=== PATIENT | female | born 1990 | race Caucasian/White ===

== ENCOUNTER → 2017-05-23 | Outpatient (CLI) | payer BC ==
[~2017-05-23] MED LIST: PNV91TAB3 PO
== END ==
LOC: CANPRECLI → LABNPT 16:34
PROVIDERS: ATTEND Obstetrics & Gynecology
DX: Z53.29 Procedure and treatment not carried out because of patient's decision for other reasons (principal)
CPT/HCPCS: 84702

== ENCOUNTER → 2017-10-17 | Outpatient (CLI) | payer BC ==
--- NOTE | 2017-10-17 08:08 | Diagnostic Imaging Report ---
PROCEDURE: US Gallbladder. TECHNIQUE: Multiple real-time grayscale images were obtained over the right upper quadrant in various projections. INDICATION: Right upper quadrant pain. FINDINGS: The liver is normal in size without focal lesions. There is no intrahepatic biliary ductal dilatation. The common bile duct is obscured by bowel gas as is the pancreas. There is no cholelithiasis, gallbladder wall thickening or pericholecystic fluid. Right kidney is grossly unremarkable. There is no ascites. There is no right upper quadrant discomfort during the exam. The aorta and IVC are not well-seen. IMPRESSION: Limited exam due to bowel gas which inhibits the visualization of common bile duct and pancreas. Otherwise unremarkable right upper quadrant ultrasound. Dictated by: Dictated on workstation # [id number]
== END ==
LOC: RAD 06:52
PROVIDERS: ATTEND Obstetrics & Gynecology
DX: R10.11 Right upper quadrant pain (principal)
CPT/HCPCS: 76705

== ENCOUNTER 2018-02-16 07:00 | Inpatient (IN) | payer BC ==
[~2018-02-16] VITALS: Ht 167.6 cm; Wt 92.5 kg
[2018-02-16] VITALS (48 sets, daily range): BP systolic 101–145; BP diastolic 60–91
[2018-02-16] MEDS ORDERED: OXYTOCIN/NORMAL SALINE 500 ML IV SCH ×2 (07:23→16:56)
[2018-02-16] MEDS ORDERED: D5 LR IV SOLUTION 1,000 ML IV ONE (07:23)
--- OUTSIDE RECORDS SUMMARY | 2018-02-16 07:25 | XMS REPORT | Continuity of Care Document ---
Author Author [facility] Organization [facility] Address Unknown Phone Unavailable Allergies There is no data. Medications There is no data. Problems Date Dx Coded Attending Type Code Diagnosis Diagnosed By 05/19/2016 JUAN LUIS DURHAM MD, Ot O47.9 FALSE LABOR, UNSPECIFIED 05/19/2016 JUAN LUIS DURHAM MD Ot Z3A.00 WEEKS OF GESTATION OF NOT SPEC 05/24/2016 JUAN LUIS DURHAM MD, Ot O47.9 FALSE LABOR, UNSPECIFIED 05/24/2016 JUAN LUIS DURHAM MD, Ot Z3A.00 WEEKS OF GESTATION OF NOT SPEC 11/01/2017 JUAN LUIS DURHAM MD Ot R10.11 RIGHT UPPER QUADRANT PAIN Procedures There is no data. Results Test Result Range Complete urinalysis with reflex to culture - 05/19/16 16:10 Urine color determination YELLOW NRG Urine clarity determination CLEAR NRG Urine pH measurement by test strip 7 5-9 Specific gravity of urine by test strip 1.010 1.016- 1.022 Urine protein assay by test strip, semi-quantitative NEGATIVE NEGATIVE Urine glucose detection by automated test strip NEGATIVE NEGATIVE Erythrocytes detection in urine sediment by light microscopy NEGATIVE NEGATIVE Urine ketones detection by automated test strip NEGATIVE NEGATIVE Urine nitrite detection by test strip NEGATIVE NEGATIVE Urine total bilirubin detection by test strip NEGATIVE NEGATIVE Urine urobilinogen measurement by automated test strip (mass/volume) NORMAL NORMAL Urine leukocyte esterase detection by dipstick NEGATIVE NEGATIVE Automated urine sediment erythrocyte count by microscopy (number/high power field) NONE NRG Automated urine sediment leukocyte count by microscopy (number/high power field ) [HPF] NRG Bacteria detection in urine sediment by light microscopy TRACE NRG Squamous epithelial cells detection in urine sediment by light microscopy 10-25 NRG Crystals detection in urine sediment by light microscopy NONE NRG Casts detection in urine sediment by light microscopy NONE NRG Mucus detection in urine sediment by light microscopy NEGATIVE NRG Complete urinalysis with reflex to culture NO NRG Bacterial urine culture - 05/19/16 16:10 URINE CULTURE RESULTS 10,000/ML - 100,000/ML NRG Serum or plasma choriogonadotropin measurement (units/volume) - 05/23/17 15:00 Serum or plasma choriogonadotropin measurement (units/volume) < m[iU ]/mL <5 Encounters ACCT No. Visit Date/Time Discharge Status Pt. Type Provider Facility Loc./Unit Complaint [id number] 10/17/2017 06:52:00 10/17/2017 23:59:59 CLS Outpatient JUAN LUIS DURHAM MD [facility] RAD RUQ PAIN [id number] 05/30/2017 16:34:00 05/30/2017 16:34:00 CAN JUAN LUIS Edwards MD [facility] LABT [id number] 05/19/2016 16:02:00 05/19/2016 16:50:00 DIS Outpatient JUAN LUIS DURHAM MD [facility] WSo BACK PAIN [id number] 05/18/2013 12:52:00 05/18/2013 23:59:59 CLS Outpatient [id number] 02/16/2018 07:00:00 PEN JUAN LUIS Edwards MD INDUCTION
--- OUTSIDE RECORDS SUMMARY | 2018-02-16 07:25 | XMS REPORT ---
Author Author FELICIA DURON Organization [facility] Address [address] [place] [address] Care Team Providers Care Mobile Application Developer Name Role Phone FELICIA DURON Unavailable PROBLEMS Unknown Problems ALLERGIES No Information ENCOUNTERS Encounter Location Date Diagnosis [facility] [address] [facility] [id number] [id number] May, Encounter for immunization Z23 [facility] [address] [facility] [id number] [id number] January, Sinusitis 473.9 IMMUNIZATIONS Vaccine Route Administration Date Status FLUARIX QUAD (3 AND UP) 2017 IM Intramuscular Jun 16, 2017 Administered SOCIAL HISTORY Never Assessed REASON FOR VISIT Flu shot [place] FELIZ PLAN OF CARE VITAL SIGNS MEDICATIONS Unknown Medications RESULTS No Results PROCEDURES Procedure Date Ordered Result Body Site FLUARIX QUAD (3 & UP)-GSK-2014Jun 16, 2017 SINGLE IMMUNIZATION ADMIN Jun 16, 2017 INSTRUCTIONS MEDICATIONS ADMINISTERED No Known Medications
--- NOTE | 2018-02-16 07:32 | History & Physical ---
History and Physical Date Seen by Provider: Feb 16, 2018 Time Seen by Provider: 07:29 This patient is a 26-year-old LC 1 white female with a due date of admitted now for induction of labor. This was the product of IUI with donor sperm. This patient is a poor history with her previous complicated by polycystic kidney disease which resulted in a . Patient has had no problems with his to date her GBS culture is negative. Patient denies rupture membranes or bleeding. Allergies are to sulfa Medications are vitamins Medical social and surgical histories are per the antepartum record HEENT exam is normal Neck is supple no lymphadenopathy no thyromegaly Abdomen is gravid soft nontender nondistended Extremities show no clubbing or cyanosis. There is no Homans sign. Pelvic exam is pending Assessment and plan term at 37-6/7 weeks gestation admitted for induction of labor. Anticipation is for vaginal delivery. Poor history/IUI conception Allergies and Home Medications Allergies Uncoded Allergies: Sulfa drugs (Allergy, Intermediate, throat swelling, 02/16/18) Home Medications Pnv95/Ferrous Fumarate/FA 1 Each Tablet, 1 EACH PO DAILY, (Reported) Patient Home Medication List Home Medication List Reviewed: Yes JUAN LUIS DURHAM MD Feb 16, 2018 7:32 am
[2018-02-16 07:48] LABS: BASOPHILS % (AUTO) 0 % (0-10); EOSINOPHILS # (AUTO) 0.1 10^3/uL (0.0-0.3); EOSINOPHILS % (AUTO) 1 % (0-10); HEMATOCRIT 33 % (35-52); HEMOGLOBIN 11.3 G/DL (11.5-16.0); LYMPHOCYTES # (AUTO) 1.7 X 10^3 (1.0-4.0); LYMPHOCYTES % (AUTO) 22 % (12-44); MEAN CORPUSCULAR HEMOGLOBIN 30 PG (25-34); MEAN CORPUSCULAR HGB CONC 34 G/DL (32-36); MEAN CORPUSCULAR VOLUME 87 FL (80-99); MEAN PLATELET VOLUME 10.6 FL (7.4-10.4); MONOCYTES # (AUTO) 0.7 X 10^3 (0.0-1.0); MONOCYTES % (AUTO) 9 % (0-12); NEUTROPHILS # (AUTO) 5.2 X 10^3 (1.8-7.8); NEUTROPHILS % (AUTO) 67 % (42-75); PLATELET COUNT 149 10^3/uL (130-400); RED CELL DISTRIBUTION WIDTH 13.3 % (10.0-14.5); WHITE BLOOD COUNT 7.7 10^3/uL (4.3-11.0)
[2018-02-16] MEDS: D5 LR IV SOLUTION 1,000 ML IV SCH ×2 (07:54→13:54)
[2018-02-16] MEDS ORDERED: SUFENTA 0.6MCG/ML BUPIVA 0.125 100 ML ONE (11:59)
[2018-02-16] MEDS ORDERED: BUPIVACAINE 0.25% 30 ML (SENSORCAINE) VIAL ONE (12:42)
[2018-02-16] MEDS ORDERED: LIDOCAINE PF 2% 5 ML (XYLOCAINE) VIAL ONE (12:42)
[2018-02-16] MEDS ORDERED: fentaNYL INJECTION 100 MCG/2 ML AMP ONE (12:43)
[2018-02-16] MEDS ORDERED: LACTATED RINGERS 1,000 ML IV ONE (13:38)
[2018-02-16] MEDS ORDERED: ONDANSETRON 4 MG/2 ML (SDV) Z0FRAN IV PRN (13:45)
[2018-02-16] MEDS ORDERED: CATHETER FLUSH 10 ML SYR IV PRN (13:45)
[2018-02-16] MEDS ORDERED: NALOXONE 0.4 MG/ML 1 ML (NARCAN) VIAL IV PRN (13:45)
[2018-02-16] MEDS ORDERED: diphenhydrAMINE 50 MG/ML INJ (BENADRYL) IV PRN (13:45)
[2018-02-16] MEDS ORDERED: EPIDURAL (SUFENTA 0.6MCG/ML BUPIVA 0.125%) 100 ML BAG EPI SCH (13:45)
[2018-02-16] MEDS ORDERED: LIDOCAINE/EPI 2% 1:200,00 (XYLOCAINE) 10 ML VIAL ONE ×2 (13:53→16:01)
[2018-02-16] MEDS ORDERED: KETOROLAC 30 MG/ML VIAL IV SCH (17:00)
[2018-02-16] MEDS ORDERED: BENZOCAINE/MENTHOL (DERMOPLAST) 56 ML CAN TP PRN (17:00)
[2018-02-16] MEDS ORDERED: oxyCODONE/APAP 5/325MG (PERCOCET 5) TABLET PO PRN (17:00)
[2018-02-16] MEDS ORDERED: TETANUS,DIPTH,PERTUSS P/F (BOOSTRIX) 0.5 ML VIAL IM ONE (17:00)
--- NOTE | 2018-02-16 22:22 | Progress Note-Standard ---
Standard Progress Note Progress Notes/Assess & Plan Date Seen by Provider: Feb 16, 2018 Time Seen by Provider: 22:21 Progress/Assessment & Plan No C/O VSS AFB Vital Signs 02/16/18 02/16/18 02/16/18 16:14 17:29 17:59 Temp 97.9 Pulse 96 Resp 20 B/P (MAP) 126/80 (95) Pulse Ox 99 O2 Delivery Room Air FF < UMB NT Ext NO C/C/E and no homans A/P PPD <1 doing well. Routine care Final Diagnosis JUAN LUIS MCGINNIS MD Feb 16, 2018 10:22 pm
--- NOTE | 2018-02-16 22:24 | Discharge Instructions ---
Discharge Instructions Discharge Medications New, Converted or Re-Newed RX: RX on Chart Patient Instructions Patient Instructions: as directed Return to The Hospital For: as directed Activity & Diet Discharge Diet: No Restrictions Activity as Tolerated: No Orders-Post D/C & Referrals Follow Up Appt: Call to make follow up appt. for patient in 4 weeks. Activity Per routine post vaginal delivery instructions. Diet as tolerated Patient may shower or tub bathe as desired. JUAN LUIS DURHAM MD Feb 16, 2018 10:24 pm
[2018-02-16] MEDS ORDERED: OXYC-471 PO (22:25)
[2018-02-16] MEDS ORDERED: DOCU100C37 PO (22:25)
[2018-02-16] MEDS ORDERED: IBUP-1780 PO (22:25)
--- NOTE | 2018-02-17 01:26 | OPERATIVE REPORT ---
DATE OF SERVICE: 02/16/2018 DELIVERY NOTE The patient delivered by term spontaneous vaginal delivery a viable female infant with Apgars of 8 and 9 at 1 and 5 minutes of life respectively, weight of 8 pounds 6 ounces, time of 15:53. The was bulb suctioned on delivery of the head and double nuchal cord was easily released and the delivery completed. The infant was bulb suctioned again and when the cord was relatively pulseless, it was doubly clamped, father cut the cord and the baby was passed to mom's abdomen. Midline episiotomy had been performed with the baby and mom unable to expel the baby. The heart rate was dropping into the 90s or lower and the patient requested the episiotomy, which was performed and then the delivery was accomplished promptly. Cord bloods were obtained after the umbilical cord had been clamped and cut. The placenta delivered spontaneously Holt. It was normal with a 3-vessel cord. The cervix, vagina, rectum and perineum were examined and found intact, except for the midline episiotomy, which was repaired with a single suture of 3-0 Vicryl in the usual manner under the epidural augmented with local using 1% lidocaine with epinephrine. Sponge and needle counts were correct on completion of the delivery and the repair. The patient remained in the LDR for recovery. Estimated blood loss again was around 300 mL. The patient tolerated the delivery well and the baby remained in the delivery room with the mom. Job ID: [id number] DocumentID: [id number] Dictated Date: 02/16/2018 16:18:28 Procedures Nurse Date: 02/17/2018 01:26:21 Dictated By: JUAN LUIS DURHAM MD
[2018-02-17 01:30] VITALS: BP 116/68
[2018-02-17] MEDS ORDERED: IBUPROFEN 800 MG (MOTRIN) TAB PO ONE ×2 (01:35→09:24)
[2018-02-17] MEDS: IBUPROFEN 800 MG (MOTRIN) TAB PO SCH ×4 (01:39→20:48)
[2018-02-17 09:00] VITALS: BP 97/65
[2018-02-17] MEDS ORDERED: TETANUS,DIPTH,PERTUSS P/F (BOOSTRIX) 0.5 ML VIAL IM ONE (09:30)
[2018-02-17] MEDS: DOCUSATE SODIUM 100 MG (COLACE) CAP PO SCH ×2 (09:34→20:48)
--- NOTE | 2018-02-17 10:12 | Anesthesia-Regional Post-Op ---
Regional Patient Condition Mental Status: Alert, Oriented x3 Circulation: Same as Pre-Op Headache: Absent Sensation: Full Recovery Motor Block: Absent Post Op Complications Complications None Follow Up Care/Instructions Patient Instructions None needed. Anesthesia/Patient Condition Patient is doing well, no complaints, stable vital signs, no apparent adverse anesthesia problems. No complications reported per nursing. LORENZO SANCHEZ CRNA Feb 17, 2018 10:12
[2018-02-17 13:15] VITALS: BP 101/63
[2018-02-17 16:30] VITALS: BP 111/73
--- NOTE | 2018-02-17 20:29 | Progress Note-Standard ---
Standard Progress Note Progress Notes/Assess & Plan Date Seen by Provider: Feb 17, 2018 Time Seen by Provider: 20:28 Progress/Assessment & Plan No C/O VSS AFB Vital Signs 02/16/18 02/16/18 02/16/18 16:14 17:29 17:59 Temp 97.9 Pulse 96 Resp 20 B/P (MAP) 126/80 (95) Pulse Ox 99 O2 Delivery Room Air FF < UMB NT Ext NO C/C/E and no homans A/P PPD <1 doing well. Routine care 02/17/18 No C/O VSS AFB Vital Signs Vital Signs Date Time Temp Pulse Resp B/P (MAP) Pulse Ox O2 Delivery O2 Flow Rate FiO2 02/17/18 16:30 98.2 80 18 111/73 (86) 98 Room Air 02/17/18 13:15 97.8 71 18 101/63 (76) 99 Room Air 02/17/18 09:00 97.9 88 18 97/65 (76) 99 Room Air 02/17/18 01:30 97.4 98 18 116/68 (84) Room Air I & O 02/17/18 07:00 Intake Total 2000 ml Balance 2000 ml 02/16/18 02/16/18 02/16/18 16:14 17:29 17:59 Temp 97.9 Pulse 96 Resp 20 B/P (MAP) 126/80 (95) Pulse Ox 99 O2 Delivery Room Air FF < UMB NT Ext NO C/C/E and no homans A/P PPD 1 doing well. Routine care with likely home tomorrow. JUAN LUIS DURHAM MD Feb 17, 2018 8:29 pm
[2018-02-17 22:30] VITALS: BP 103/71
[2018-02-18] MEDS: IBUPROFEN 800 MG (MOTRIN) TAB PO SCH ×2 (03:16→08:27)
[2018-02-18 03:17] VITALS: BP 108/63
--- NOTE | 2018-02-18 06:47 | Progress Note-Standard ---
Standard Progress Note Progress Notes/Assess & Plan Date Seen by Provider: Feb 18, 2018 Time Seen by Provider: 06:46 Progress/Assessment & Plan No C/O VSS AFB Vital Signs 02/16/18 02/16/18 02/16/18 16:14 17:29 17:59 Temp 97.9 Pulse 96 Resp 20 B/P (MAP) 126/80 (95) Pulse Ox 99 O2 Delivery Room Air FF < UMB NT Ext NO C/C/E and no homans A/P PPD <1 doing well. Routine care 02/17/18 No C/O VSS AFB Vital Signs Vital Signs Date Time Temp Pulse Resp B/P (MAP) Pulse Ox O2 Delivery O2 Flow Rate FiO2 02/17/18 16:30 98.2 80 18 111/73 (86) 98 Room Air 02/17/18 13:15 97.8 71 18 101/63 (76) 99 Room Air 02/17/18 09:00 97.9 88 18 97/65 (76) 99 Room Air 02/17/18 01:30 97.4 98 18 116/68 (84) Room Air I & O 02/17/18 07:00 Intake Total 2000 ml Balance 2000 ml 02/16/18 02/16/18 02/16/18 16:14 17:29 17:59 Temp 97.9 Pulse 96 Resp 20 B/P (MAP) 126/80 (95) Pulse Ox 99 O2 Delivery Room Air FF < UMB NT Ext NO C/C/E and no homans A/P PPD 1 doing well. Routine care with likely home tomorrow. February 18, 2018 Patient is without complaint. She is ambulating, voiding, tolerating by mouth, has good pain control. Patient is requesting discharge home. She denies chest pain, denies shortness of breath, denies nausea vomiting, and denies headache. Vital Signs Date Time Temp Pulse Resp B/P (MAP) Pulse Ox O2 Delivery O2 Flow Rate FiO2 02/18/18 03:17 97.7 60 18 108/63 (78) 98 Room Air 02/17/18 22:30 98.1 81 18 103/71 (82) 98 Room Air 02/17/18 16:30 98.2 80 18 111/73 (86) 98 Room Air 02/17/18 13:15 97.8 71 18 101/63 (76) 99 Room Air 02/17/18 09:00 97.9 88 18 97/65 (76) 99 Room Air Vital signs are stable. Patient is afebrile. Fundus is firm below the umbilicus and nontender. [place] show clubbing cyanosis. There is no Homans sign. There is minimal pretibial pitting edema. Assessment and plan day number 2 status post term spontaneous vaginal delivery doing well. Plan is for discharge home with follow-up in clinic Final Diagnosis T JUAN LUIS LONGORIA MD Feb 18, 2018 6:47 am
[2018-02-18 08:00] VITALS: BP 102/66
[2018-02-18] MEDS: DOCUSATE SODIUM 100 MG (COLACE) CAP PO SCH (08:26)
[2018-02-18 10:35] VITALS: BP 102/66
== END 2018-02-18 10:35 | disposition home or self-care (01) | DRG 775 ==
LOC: LDRP 07:20
PROVIDERS: ADMIT Obstetrics & Gynecology; ATTEND Obstetrics & Gynecology
PROC: 10E0XZZ Delivery of Products of Conception, External Approach (ICD-10-PCS; principal; 2018-02-16)
PROC: 0W8NXZZ Division of Female Perineum, External Approach (ICD-10-PCS; 2018-02-16)
PROC: 3E033VJ Introduction of Other Hormone into Peripheral Vein, Percutaneous Approach (ICD-10-PCS; 2018-02-16)
DX: O80 Encounter for full-term uncomplicated delivery (principal); Z37.0 Single live birth; Z3A.37 37 weeks gestation of pregnancy; Z23 Encounter for immunization
CPT/HCPCS: 36415; 85025; 86850; 86900; 86901; 88307; 90715

== ENCOUNTER → 2022-09-30 | Outpatient (CLI) | payer BC ==
[~2022-09-30] MED LIST changes: +DOCU100C37 PO; +IBUP-1780 PO; +OXYC1TAB11 PO
--- NOTE | 2022-10-03 10:07 | Diagnostic Imaging Report ---
INDICATION: Twin , evaluate growth. TECHNIQUE: Multiple Real-time grayscale images were obtained over the gravid uterus. COMPARISON: None. FINDINGS: There is a twin live intrauterine which demonstrates a dividing membrane. Baby A is in a cephalic presentation to the maternal right. Baby A placenta appears to be fundal and anterior with an amniotic fluid index of 18.1 cm. heart rate was recorded at 147 BPM. Baby B is in a breech presentation to the maternal left with an anterior placenta and an amniotic fluid index of 18.1 cm. The heart rate was recorded at 149 BPM. Biophysical profile scores for both Baby A and Baby B are each 8 out of 8. Biometrical measurements are as follows: Biparietal 7.14 cm, age 28 weeks 5 days. Head circumference 26.23 cm, age 28 weeks 4 days. Abdominal circumference 24.44 cm, age 28 weeks 5 days. Femur length 5.09 cm, age 27 weeks 2 days. Sonographic estimate age: 28 weeks 3 days. Sonographic estimated date of delivery: 12/20/2022. Estimated Weight: 1190 gm (+/- 174 gm). LMP percentile: 69%. heart rate: 147 beats per minute. number: 1 of 2. IMPRESSION: Twin live intrauterine pregnancies at approximately 28 weeks 3 days gestation. Estimated date of confinement sonographically is 12/20/2022. Biophysical profile scores for both Baby A and Baby B are normal at 8 out of 8. Dictated by: Dictated on workstation # [id number]
--- NOTE | 2022-10-04 17:42 | Diagnostic Imaging Report ---
INDICATION: Twin , evaluate growth. TECHNIQUE: Multiple Real-time grayscale images were obtained over the gravid uterus. COMPARISON: None. FINDINGS: There is a twin live intrauterine which demonstrates a dividing membrane. Baby A is in a cephalic presentation to the maternal right. Baby A placenta appears to be fundal and anterior with an amniotic fluid index of 18.1 cm. heart rate was recorded at 147 BPM. Baby B is in a breech presentation to the maternal left with an anterior placenta and an amniotic fluid index of 18.1 cm. The heart rate was recorded at 149 BPM. Biophysical profile scores for both Baby A and Baby B are each 8 out of 8. Biometrical measurements are as follows: Biparietal 7.14 cm, age 28 weeks 5 days. Head circumference 26.23 cm, age 28 weeks 4 days. Abdominal circumference 24.44 cm, age 28 weeks 5 days. Femur length 5.09 cm, age 27 weeks 2 days. Sonographic estimate age: 28 weeks 3 days. Sonographic estimated date of delivery: 12/20/2022. Estimated Weight: 1190 gm (+/- 174 gm). LMP percentile: 69%. heart rate: 147 beats per minute. number: 1 of 2. Biometrical measurements are as follows: Biparietal 7.25 cm, age 29 weeks 1 days. Head circumference 26.68 cm, age 29 weeks 1 days. Abdominal circumference 24.14 cm, age 28 weeks 3 days. Femur length 4.96 cm, age 26 weeks 6 days. Sonographic estimate age: 28 weeks 3 days. Sonographic estimated date of delivery: 12/20/2022. Estimated Weight: 1152 gm (+/- 168 gm). LMP percentile: 59%. heart rate: 149 beats per minute. number: 2 of 2. IMPRESSION: Twin live intrauterine pregnancies at approximately 28 weeks 3 days gestation. Estimated date of confinement sonographically is 12/20/2022. Biophysical profile scores for both Baby A and Baby B are normal at 8 out of 8. Dictated by: Dictated on workstation # [id number]
== END ==
LOC: RAD 14:50
PROVIDERS: ATTEND Obstetrics & Gynecology
DX: O30.003 Twin pregnancy, unspecified number of placenta and unspecified number of amniotic sacs, third trimester (principal); Z3A.28 28 weeks gestation of pregnancy
CPT/HCPCS: 76805; 76810; 76819

== ENCOUNTER 2022-11-27 03:31 | Outpatient (CLI) | payer BC ==
[2022-11-27] VITALS (12 sets, daily range): BP systolic 127–168; BP diastolic 89–110
[~2022-11-27] VITALS: Ht 167.7 cm; Wt 100.9 kg
[2022-11-27 04:05] LABS: BILIRUBIN,URINE NEGATIVE (NEGATIVE); CLARITY,URINE CLEAR; COLOR,URINE YELLOW; GLUCOSE, URINE (UA) NEGATIVE (NEGATIVE); KETONES,URINE NEGATIVE (NEGATIVE); LEUKOCYTE ESTERASE ,URINE NEGATIVE (NEGATIVE); NITRITE,URINE NEGATIVE (NEGATIVE); PROTEIN,URINE NEGATIVE (NEGATIVE)
[2022-11-27 04:17] LABS: BACTERIA,URINE MODERATE /HPF; SQUAMOUS EPITHELIAL CELL,UR 25-50 /HPF
[2022-11-27 05:07] LABS: BASOPHILS % (AUTO) 0 % (0-10); EOSINOPHILS # (AUTO) 0.1 10^3/uL (0.0-0.3); EOSINOPHILS % (AUTO) 1 % (0-10); HEMATOCRIT 36 % (35-52); HEMOGLOBIN 12.8 g/dL (11.5-16.0); LYMPHOCYTES # (AUTO) 1.2 10^3/uL (1.0-4.0); LYMPHOCYTES % (AUTO) 14 % (12-44); MEAN CORPUSCULAR HEMOGLOBIN 33 pg (25-34); MEAN CORPUSCULAR HGB CONC 36 g/dL (32-36); MEAN CORPUSCULAR VOLUME 91 fL (80-99); MEAN PLATELET VOLUME 11.6 fL (9.0-12.2); MONOCYTES # (AUTO) 0.6 10^3/uL (0.0-1.0); MONOCYTES % (AUTO) 6 % (0-12); NEUTROPHILS # (AUTO) 6.9 10^3/uL (1.8-7.8); NEUTROPHILS % (AUTO) 78 % (42-75); PLATELET COUNT 92 10^3/uL (130-400); WHITE BLOOD COUNT 8.8 10^3/uL (4.3-11.0)
[2022-11-27 05:29] LABS: ALBUMIN 2.8 GM/DL (3.2-4.5); BILIRUBIN,TOTAL 0.6 MG/DL (0.1-1.0); CALCIUM 8.7 MG/DL (8.5-10.1); CREATININE SERUM 0.76 MG/DL (0.60-1.30); POTASSIUM 3.4 MMOL/L (3.6-5.0); TOTAL PROTEIN 5.5 GM/DL (6.4-8.2); URIC ACID 5.2 MG/DL (2.6-7.2)
[2022-11-27] MEDS ORDERED: LABETALOL 200 MG (NORMODYNE) TAB PO ONE (05:45)
[2022-11-27] MEDS ORDERED: ASPI-999 PO (05:58)
[2022-11-27] MEDS ORDERED: CALCIUM CARBONATE 500 MG (TUMS) TAB.CHEW PO PRN (07:00)
--- NOTE | 2022-11-27 10:34 | OB Triage Report ---
Standard Progress Note Progress Notes/Assess & Plan Date Seen by a Provider: Nov 27, 2022 Time Seen by a Provider: 10:00 Expected Date of Delivery: Dec 27, 2022 Gestational Age in Weeks: 35 Gestational Age in Days: 5 LMP/EFREM Comment: 12/27/22 Progress/Assessment & Plan at 35w5d with a twin IUP presents with c/o contractions and vomiting x1. Her BP was quite elevated upon presentation and did not improve within the first couple of hours. Nausea resolved. Tocos slowed down spontaneously and now she only has uterine irritability. She cannot feel any tocos unless she is flat on her back. She received Labetalol 100mg po x1, which brought her BP into the normal range. Vital Signs 11/27/22 11/27/22 07:03 09:46 Temp 36.5 Pulse 96 Resp 18 B/P (MAP) 127/89 (102) Pulse Ox 99 O2 Delivery Room Air PE: A+Ox3 L: Non labored CV: RRR Abd: Gravid SVE: 1/thick/-3 per RN. Ext: No edema. Neg Keanu's Laboratory Tests 11/27/22 03:30: Urine Color YELLOW, Urine Clarity CLEAR, Urine pH 6.0, Urine Specific [place] 1.010L, Urine Protein NEGATIVE, Urine Glucose (UA) NEGATIVE, Urine Ketones NEGATIVE, Urine Nitrite NEGATIVE, Urine Bilirubin NEGATIVE, Urine Urobilinogen 0.2, Urine Leukocyte Esterase NEGATIVE, Urine RBC (Auto) NEGATIVE, Urine RBC NONE, Urine WBC 2-5, Urine Squamous Epithelial Cells 25-50H, Urine Crystals NONE, Urine Bacteria MODERATEH, Urine Casts NONE, Urine Mucus NEGATIVE, Urine Culture Indicated NO 11/27/22 05:00: White Blood Count 8.8, Red Blood Count 3.94, Hemoglobin 12.8, Hematocrit 36, Mean Corpuscular Volume 91, Mean Corpuscular Hemoglobin 33, Mean Corpuscular Hemoglobin Concent 36, Red Cell Distribution Width 12.7, Platelet Count 92L, Mean Platelet Volume 11.6, Immature Granulocyte % (Auto) 1, Neutrophils (%) (Auto) 78H, Lymphocytes (%) (Auto) 14, Monocytes (%) (Auto) 6, Eosinophils (%) (Auto) 1, Basophils (%) (Auto) 0, Neutrophils # (Auto) 6.9, Lymphocytes # (Auto) 1.2, Monocytes # (Auto) 0.6, Eosinophils # (Auto) 0.1, Basophils # (Auto) 0.0, Immature Granulocyte # (Auto) 0.0, Sodium Level 140, Potassium Level 3.4L, Chloride Level 112H, Carbon Dioxide Level 17L, Anion Gap 11, Blood Urea Nitrogen 5L, Creatinine 0.76, Estimat Glomerular Filtration Rate 105, BUN/Creatinine Ratio 7, Glucose Level 85, Uric Acid 5.2, Calcium Level 8.7, Corrected Calcium 9.7, Total Bilirubin 0.6, Aspartate Amino Transf (AST/SGOT) 29, Alanine Aminotransferase (ALT/SGPT) 20, Alkaline Phosphatase 109, Lactate Dehydrogenase 208, Total Protein 5.5L, Albumin 2.8L A/P: Twin IUP at 35w5d. Threatened labor - ruled out. GHTN - BP responded well to Labetalol 100mg po. No symptoms of preeclampsia. Gestational thrombocytopenia - patient reports that she has been followed for this and her last PLT count was 122k. Today it has dropped to 92k. Vomiting - resolved. I have advised her to go home and rest. Continue Labetalol 100mg 1 po BID (Rx called in) until seen by her OB tomorrow (to discuss possible induction if symptoms worsen). Preeclampsia precautions given. Repeat PLT count advised as an outpatient. JAISON FAJARDO DO Nov 27, 2022 10:34
[2022-11-27] MEDS ORDERED: LABE100T9 PO (10:36)
== END 2022-11-27 10:42 | disposition home or self-care (01) ==
LOC: WSo 03:31 → LDRP 03:31 → WSo 10:42
PROVIDERS: ATTEND Obstetrics & Gynecology
DX: O47.03 False labor before 37 completed weeks of gestation, third trimester (principal); O21.9 Vomiting of pregnancy, unspecified; O30.043 Twin pregnancy, dichorionic/diamniotic, third trimester; Z3A.35 35 weeks gestation of pregnancy
CPT/HCPCS: 36415; 80053; 81000; 83615; 84550; 85025; 99214

== ENCOUNTER 2022-11-27 19:48 | Outpatient (CLI) | payer BC ==
[2022-11-26 20:30] VITALS: BP 126/87
[2022-11-27] VITALS (12 sets, daily range): BP systolic 121–139; BP diastolic 78–94
[~2022-11-27] VITALS: Ht 167.7 cm; Wt 100.2 kg
[~2022-11-27 19:48] MED LIST changes: +ASPI-999 PO; +LABE100T9 PO
[2022-11-27] MEDS ORDERED: LACTATED RINGERS 1,000 ML IV SCH (21:15)
[2022-11-27 21:26] LABS: BILIRUBIN,URINE NEGATIVE (NEGATIVE); CLARITY,URINE SL CLOUDY; COLOR,URINE YELLOW; GLUCOSE, URINE (UA) NEGATIVE (NEGATIVE); KETONES,URINE 1+ (NEGATIVE); LEUKOCYTE ESTERASE ,URINE TRACE (NEGATIVE); NITRITE,URINE NEGATIVE (NEGATIVE); PROTEIN,URINE 1+ (NEGATIVE)
[2022-11-27 21:35] LABS: BASOPHILS % (AUTO) 0 % (0-10); EOSINOPHILS % (AUTO) 0 % (0-10)
[2022-11-27 21:37] LABS: HEMATOCRIT 35 % (35-52); HEMOGLOBIN 12.3 g/dL (11.5-16.0); LYMPHOCYTES % (AUTO) 11 % (12-44); MEAN CORPUSCULAR HEMOGLOBIN 33 pg (25-34); MEAN CORPUSCULAR HGB CONC 36 g/dL (32-36); MEAN CORPUSCULAR VOLUME 91 fL (80-99); MEAN PLATELET VOLUME 11.7 fL (9.0-12.2); MONOCYTES # (AUTO) 0.6 10^3/uL (0.0-1.0); MONOCYTES % (AUTO) 6 % (0-12); NEUTROPHILS # (AUTO) 7.9 10^3/uL (1.8-7.8); NEUTROPHILS % (AUTO) 82 % (42-75); PLATELET COUNT 90 10^3/uL (130-400); WHITE BLOOD COUNT 9.7 10^3/uL (4.3-11.0)
[2022-11-27 21:42] LABS: ALBUMIN 2.9 GM/DL (3.2-4.5); POTASSIUM 3.2 MMOL/L (3.6-5.0)
[2022-11-27 21:43] LABS: CALCIUM 8.7 MG/DL (8.5-10.1)
[2022-11-27 21:45] LABS: TOTAL PROTEIN 5.6 GM/DL (6.4-8.2)
[2022-11-27 21:46] LABS: BILIRUBIN,TOTAL 0.6 MG/DL (0.1-1.0)
[2022-11-27 21:48] LABS: BACTERIA,URINE LARGE /HPF; RBC,URINE 0-2 /HPF
[2022-11-27 21:48] LABS: CREATININE SERUM 0.71 MG/DL (0.60-1.30)
[2022-11-27 21:51] LABS: URIC ACID 5.4 MG/DL (2.6-7.2)
[2022-11-27] MEDS ORDERED: BETAMETHASONE ACE/NA PHOS 6 MG/ML (CELESTONE SOLUSPAN) ONE (22:38)
[2022-11-27] MEDS ORDERED: ONDANSETRON 4 MG/2 ML (SDV) Z0FRAN ONE (22:39)
[2022-11-27] MEDS ORDERED: ONDANSETRON 4 MG (ZOFRAN) ORAL DISSOLVE TAB PO ONE (22:45)
[2022-11-27] MEDS ORDERED: ONDANSETRON 4 MG/2 ML (SDV) Z0FRAN IVP ONE (22:45)
[2022-11-27] MEDS ORDERED: diphenhydrAMINE 25 MG TAB (BENADRYL) PO ONE (22:45)
[2022-11-27] MEDS ORDERED: ACETAMINOPHEN 500 MG TAB (TYLENOL) PO ONE (22:45)
--- NOTE | 2022-11-27 22:49 | OB Triage Report ---
Standard Progress Note Progress Notes/Assess & Plan Date Seen by a Provider: Nov 27, 2022 Time Seen by a Provider: 22:10 Expected Date of Delivery: Dec 27, 2022 Gestational Age in Weeks: 35 Gestational Age in Days: 5 LMP/EFREM Comment: IUP twins at 35w5d Progress/Assessment & Plan 32yo with a twin IUP presents with tocos and vomiting x2. She also has gestational thrombocytopenia and GHTN. We started her on Labetalol 100mg yesterday and her BP responded well to that. Her PLT remained about the same as yesterday. Her AST went up slightly. She denies HAs, or vision changes. She has slight epigastric pain from vomiting but no RUQ tenderness on exam. Her cervix is unchanged from yesterday and her tocos are not painful. FHTs reactive and category 1 for both baby A and baby B. Laboratory Tests Test 11/27/22 20:10 11/27/22 21:20 Range/Units Urine Color YELLOW Urine Clarity SL CLOUDY Urine pH 6.0 5-9 Urine Specific [place] 1.015 L 1.016-1.022 Urine Protein 1+ H NEGATIVE Urine Glucose (UA) NEGATIVE NEGATIVE Urine Ketones 1+ H NEGATIVE Urine Nitrite NEGATIVE NEGATIVE Urine Bilirubin NEGATIVE NEGATIVE Urine Urobilinogen 0.2 < = 1.0 MG/DL Urine Leukocyte Esterase TRACE H NEGATIVE Urine RBC (Auto) 1+ H NEGATIVE Urine RBC 0-2 /HPF Urine WBC 2-5 /HPF Urine Squamous Epithelial Cells 10-25 H /HPF Urine Crystals NONE /LPF Urine Bacteria LARGE H /HPF Urine Casts NONE /LPF Urine Mucus SMALL H /LPF Urine Culture Indicated NO Urine Creatinine 98 30-125 MG/DL Urine Protein/Creatinine Ratio 0.67 White Blood Count 9.7 4.3-11.0 10^3/uL Red Blood Count 3.78 L 3.80-5.11 10^6/uL Hemoglobin 12.3 11.5-16.0 g/dL Hematocrit 35 35-52 % Mean Corpuscular Volume 91 80-99 fL Mean Corpuscular Hemoglobin 33 25-34 pg Mean Corpuscular Hemoglobin Concent 36 32-36 g/dL Red Cell Distribution Width 12.9 10.0-14.5 % Platelet Count 90 L 130-400 10^3/uL Mean Platelet Volume 11.7 9.0-12.2 fL Immature Granulocyte % (Auto) 1 % Neutrophils (%) (Auto) 82 H 42-75 % Lymphocytes (%) (Auto) 11 L 12-44 % Monocytes (%) (Auto) 6 0-12 % Eosinophils (%) (Auto) 0 0-10 % Basophils (%) (Auto) 0 0-10 % Neutrophils # (Auto) 7.9 H 1.8-7.8 10^3/uL Lymphocytes # (Auto) 1.0 1.0-4.0 10^3/uL Monocytes # (Auto) 0.6 0.0-1.0 10^3/uL Eosinophils # (Auto) 0.0 0.0-0.3 10^3/uL Basophils # (Auto) 0.0 0.0-0.1 10^3/uL Immature Granulocyte # (Auto) 0.1 0.0-0.1 10^3/uL Percent Immature Platelet Fraction 10.5 H 0.0-7.6 % Sodium Level 141 135-145 MMOL/L Potassium Level 3.2 L 3.6-5.0 MMOL/L Chloride Level 111 H 98-107 MMOL/L Carbon Dioxide Level 17 L 21-32 MMOL/L Anion Gap 13 5-14 MMOL/L Blood Urea Nitrogen 5 L 7-18 MG/DL Creatinine 0.71 0.60-1.30 MG/DL Estimat Glomerular Filtration Rate 114 BUN/Creatinine Ratio 7 Glucose Level 84 70-105 MG/DL Uric Acid 5.4 2.6-7.2 MG/DL Calcium Level 8.7 8.5-10.1 MG/DL Corrected Calcium 9.6 8.5-10.1 MG/DL Total Bilirubin 0.6 0.1-1.0 MG/DL Aspartate Amino Transf (AST/SGOT) 44 H 5-34 U/L Alanine Aminotransferase (ALT/SGPT) 36 0-55 U/L Alkaline Phosphatase 113 40-136 U/L Lactate Dehydrogenase 224 H 125-220 U/L Total Protein 5.6 L 6.4-8.2 GM/DL Albumin 2.9 L 3.2-4.5 GM/DL Final Diagnosis IUP at 35w5d Threatened labor - ruled out. I have advised steroids to be given for lung maturity. Vomiting x2 at home - resolved. Feels better after Zofran given. GHTN - stable on Labetalol 100mg 1 po BID. Gestational thrombocytopenia - unchanged from yesterday. Slightly elevated AST - no RUQ pain, DUNLAP, vision changes or other signs of severe preeclampsia. We have discussed several options includin) Steroids to be given and then D/C home. Repeat labs at 7am and then f/u with her nurse practicioner at 8am. 2) Transfer to [facility] for further monitoring and repeat labs. 3) Keep her here for monitoring until 5am (when she would have to be discharged since there is no PROGRAM CHECKER available after 5am). 4) Delivery tonight (via since an induction would take longer than 6 hours). We have discussed the risks of each option including risks of and maternal complications including and maternal preeclampsia/eclampsia. She would like to proceed with option 1 and will be discharged after steroids have been given. Diagnosis/Problems Diagnosis/Problems (1) with poor obstetric history Status: Resolved (2) Uterine contractions (3) with 35 to 36 completed weeks gestation JAISON FAJARDO DO Nov 27, 2022 22:49
[2022-11-28] MEDS ORDERED: BETAMETHASONE ACE/NA PHOS 6 MG/ML (CELESTONE SOLUSPAN) IM SCH (09:00)
== END 2022-11-27 23:33 | disposition home or self-care (01) ==
LOC: LDRP 19:48 → WSo 19:48
PROVIDERS: ATTEND Obstetrics & Gynecology
DX: O62.9 Abnormality of forces of labor, unspecified (principal); Z3A.35 35 weeks gestation of pregnancy
CPT/HCPCS: 36415; 80053; 81000; 82570; 83615; 84156; 84550; 85025; 96360; 96372; 99213

== ENCOUNTER 2023-05-20 09:59 | Emergency (ER) | payer BC ==
[~2023-05-20] VITALS: Ht 167.7 cm; Wt 91.6 kg
[2023-05-20] MEDS ORDERED: NS IV 1000 ML 1,000 ML IV STA (10:23)
[2023-05-20 10:30] LABS: BASOPHILS % (AUTO) 0 % (0-10); EOSINOPHILS # (AUTO) 0.1 10^3/uL (0.0-0.3); EOSINOPHILS % (AUTO) 1 % (0-10); HEMATOCRIT 44 % (35-52); HEMOGLOBIN 15.4 g/dL (11.5-16.0); LYMPHOCYTES # (AUTO) 1.4 10^3/uL (1.0-4.0); LYMPHOCYTES % (AUTO) 11 % (12-44); MEAN CORPUSCULAR HEMOGLOBIN 31 pg (25-34); MEAN CORPUSCULAR HGB CONC 35 g/dL (32-36); MEAN CORPUSCULAR VOLUME 89 fL (80-99); MEAN PLATELET VOLUME 10.3 fL (9.0-12.2); MONOCYTES # (AUTO) 0.8 10^3/uL (0.0-1.0); MONOCYTES % (AUTO) 6 % (0-12); NEUTROPHILS # (AUTO) 10.2 10^3/uL (1.8-7.8); NEUTROPHILS % (AUTO) 81 % (42-75); PLATELET COUNT 188 10^3/uL (130-400); WHITE BLOOD COUNT 12.5 10^3/uL (4.3-11.0)
--- NOTE | 2023-05-20 10:33 | ED General ---
General Chief Complaint: Breast Complaints Stated Complaint: ELEVATED HEART RATE/FEVER/ RED TENDER BREAST Nursing Triage Note: PT AMB TO [facility] 6 WITH CC OF LEFT BREAST PAIN, REDNESS, FEVER, AND ELEVATED HR. PT WAS SEEN AT [facility] TODAY AND DIAGNOSIS WITH MASTITIS AND WAS GIVEN A ROCEPHIN SHOT AND ORAL KEFLEX. Source of Information: Patient Exam Limitations: No Limitations History of Present Illness Date Seen by Provider: May 20, 2023 Time Seen by Provider: 10:12 Initial Comments Here with report of left breast pain and redness and has diagnosis of mastitis. She was given a shot of Rocephin today and started on oral cephalexin. She was a little worried because her heart rate was elevated and she was worried about severe infection and presented here for further evaluation. Denies nausea, vomiting, diarrhea or breathing problems. She does have twins and is breast- feeding. She does have known irritation of the left breast without concerns on the right. No concerns for abscess. She is worried about more severe infection. Timing/Duration: 1-2 Days Severity: Moderate Associated Systoms: No Fever/Chills, No Nausea/Vomiting, No Shortness of Air, No Weakness Allergies and Home Medications Allergies Coded Allergies: Sulfa (Sulfonamide Antibiotics) (Verified Allergy, Intermediate, THROAT SWELLS, 11/29/22) Patient Home Medication List Home Medication List Reviewed: Yes Labetalol HCl (Labetalol HCl) 100 Mg Tablet, 100 MG PO BID Prescribed by: JOSÉ MIGUEL NARANJO on 11/27/22 1036 Pnv95/Ferrous Fumarate/FA ( Caplet) 1 Each Tablet, 1 EACH PO DAILY, (Reported) Entered as Reported by: JOHNY PARNELL on 05/19/16 1641 Review of Systems Review of Systems Constitutional: see HPI, fever EENTM: No nose congestion Respiratory: No cough, No short of breath Cardiovascular: no symptoms reported Gastrointestinal: No nausea, No vomiting Genitourinary: no symptoms reported Skin: see HPI, change in color; No pruritus Past Zhjpvaq-Nfwtsp-Rjrgfw Hx Patient Social History Tobacco Use?: No Substance use?: No Alcohol Use?: No Seasonal Allergies Seasonal Allergies: No Past Medical History Surgeries: Yes Section Respiratory: No Cardiac: No Neurological: No Genitourinary: No Gastrointestinal: No Musculoskeletal: No Endocrine: No HEENT: No Cancer: No Psychosocial: No Integumentary: No Blood Disorders: No Family Medical History Reviewed Nursing Family Hx Hypercholesterolemia 19 FATHER Hypertension 19 FATHER 19 MOTHER Physical Exam-Suspected Sepsis Physical Exam Vital Signs Vital Signs - First Documented 05/20/23 10:09 Temp 37.7 Pulse 128 B/P (MAP) 134/92 (106) Pulse Ox 98 O2 Delivery Room Air Capillary Refill : Blood Pressure Mean: 106 Height, Weight, BMI Height: 5'6.00" Weight: 204lbs. 0.2oz. 92.193849se; 32.00 BMI Method: General Appearance: WD/WN, Anxious HEENT: PERRL/EOMI Neck: Non Tender, Supple Respiratory: Lungs Clear, Normal Breath Sounds Cardiovascular: No Murmur, Tachycardia Gastrointestinal: Non Tender, Soft Extremity: Normal Range of Motion, Non Tender Neurologic/Psychiatric: Alert, Oriented x3 Skin: warm/dry, other (Progressed with redness lateral aspect towards areola without obvious abscess and consistent with mastitis) Focused Exam Lactate Level 05/20/23 10:14: Lactic Acid Level 0.90 Lactic Acid Level Laboratory Tests Test 05/20/23 10:14 Lactic Acid Level 0.90 MMOL/L (0.50-2.00) Progress/Results/Core Measures Suspected Sepsis SIRS Temperature: Pulse: 128 Respiratory Rate: Laboratory Tests 05/20/23 10:14: White Blood Count 12.5H Blood Pressure 134 /92 Mean: 106 05/20/23 10:14: Lactic Acid Level 0.90 Laboratory Tests 05/20/23 10:14: Creatinine 0.90, INR Comment 1.0, Platelet Count 188, Total Bilirubin 1.3H Results/Orders Lab Results Laboratory Tests Test 05/20/23 10:14 Range/Units White Blood Count 12.5 H 4.3-11.0 10^3/uL Red Blood Count 4.92 3.80-5.11 10^6/uL Hemoglobin 15.4 11.5-16.0 g/dL Hematocrit 44 35-52 % Mean Corpuscular Volume 89 80-99 fL Mean Corpuscular Hemoglobin 31 25-34 pg Mean Corpuscular Hemoglobin Concent 35 32-36 g/dL Red Cell Distribution Width 12.3 10.0-14.5 % Platelet Count 188 130-400 10^3/uL Mean Platelet Volume 10.3 9.0-12.2 fL Immature Granulocyte % (Auto) 0 % Neutrophils (%) (Auto) 81 H 42-75 % Lymphocytes (%) (Auto) 11 L 12-44 % Monocytes (%) (Auto) 6 0-12 % Eosinophils (%) (Auto) 1 0-10 % Basophils (%) (Auto) 0 0-10 % Neutrophils # (Auto) 10.2 H 1.8-7.8 10^3/uL Lymphocytes # (Auto) 1.4 1.0-4.0 10^3/uL Monocytes # (Auto) 0.8 0.0-1.0 10^3/uL Eosinophils # (Auto) 0.1 0.0-0.3 10^3/uL Basophils # (Auto) 0.0 0.0-0.1 10^3/uL Immature Granulocyte # (Auto) 0.1 0.0-0.1 10^3/uL Prothrombin Time 13.3 12.2-14.7 SEC INR Comment 1.0 0.8-1.4 Activated Partial Thromboplast Time 30 24-35 SEC Sodium Level 138 135-145 MMOL/L Potassium Level 3.9 3.6-5.0 MMOL/L Chloride Level 103 98-107 MMOL/L Carbon Dioxide Level 24 21-32 MMOL/L Anion Gap 11 5-14 MMOL/L Blood Urea Nitrogen 11 7-18 MG/DL Creatinine 0.90 0.60-1.30 MG/DL Estimat Glomerular Filtration Rate 86 BUN/Creatinine Ratio 12 Glucose Level 103 70-105 MG/DL Lactic Acid Level 0.90 0.50-2.00 MMOL/L Calcium Level 9.8 8.5-10.1 MG/DL Corrected Calcium 8.5-10.1 MG/DL Total Bilirubin 1.3 H 0.1-1.0 MG/DL Aspartate Amino Transf (AST/SGOT) 21 5-34 U/L Alanine Aminotransferase (ALT/SGPT) 22 0-55 U/L Alkaline Phosphatase 91 40-136 U/L C-Reactive Protein High Sensitivity 8.86 H 0.00-0.50 MG/DL Total Protein 8.0 6.4-8.2 GM/DL Albumin 4.7 H 3.2-4.5 GM/DL My Orders Orders - SHABANA MATIAS MD Cbc With Automated Diff (05/20/23 10:23) Comprehensive Metabolic Panel (05/20/23 10:23) Blood Culture (05/20/23 10:23) Sputum Culture (05/20/23 10:23) Protime With Inr (05/20/23 10:23) Partial Thromboplastin Time (05/20/23 10:23) Chest 1 View, Ap/Pa Only (05/20/23 10:23) Ed Iv/Invasive Line Start (05/20/23 10:23) Vital Signs Adult Sepsis Patie Q15M (05/20/23 10:23) O2 (05/20/23 10:23) Remove Rings In Anticipation O (05/20/23 10:23) Lactic Acid Analyzer (05/20/23 10:23) Ns Iv 1000 Ml (Ns Iv 1000 Ml) (05/20/23 10:23) Hs C Reactive Protein (05/20/23 10:23) Vital Signs/I&O 05/20/23 10:09 Temp 37.7 Pulse 128 B/P (MAP) 134/92 (106) Pulse Ox 98 O2 Delivery Room Air Capillary Refill : Blood Pressure Mean: 106 Progress Note : Progress Note Seen and evaluated. Patient is quite tachycardic with mild fever and we will go ahead and initiate sepsis work-up including CBC, CMP, lactic acid, blood cultures and CRP. I will get chest x-ray. No indication for UA at this point. Normal saline 1 L bolus ordered due to tachycardia. Patient has had Rocephin 1 g IM already today and does have prescription for cephalexin. We will see how labs present and make further determination based on that. Differential diagnosis includes mastitis, sepsis, dehydration, electrolyte abnormality 1124: Heart rate has declined to the 90s to low 100s from high of 140s earlier. She is overall feeling much better and is reassured. CBC does show slight elevation of white count consistent with mastitis. CMP is grossly normal with elevated CRP also consistent with mastitis. Lactic acid is negative. Chest x- ray shows no acute findings on my interpretation. See radiology report. Overall she is doing better this comfortable going home and I am comfortable with that as well. Discharged home with return precautions. Patient verbalized understanding of instructions and agreement with plan. Diagnostic Imaging Diagonstic Imaging: Xray Plain Films/CT/US/NM/MRI: chest Comments [facility] [place], [place] NAME: TOPHER [facility]LES [facility] REC#: [id number] PT STATUS: REG ER : 1990 PHYSICIAN: SHABANA MATIAS MD ADMIT DATE: 05/20/23/ER Signed Date of Exam:05/20/23 CHEST 1 VIEW, AP/PA ONLY EXAMINATION: Chest 1 view HISTORY: fever, tachycardia COMPARISON: None available. FINDINGS: Heart size and pulmonary vasculature are normal. The lungs are clear without consolidation, pleural effusion, or pneumothorax. The osseous structures are intact. IMPRESSION: 1. No acute radiographic abnormality in the chest. Dictated by: Dictated on workstation # [id number] Dict: 05/20/23 1046 Trans: 05/20/23 1056 [facility] [id number] Interpreted by: ROHIT BATRES DO Electronically signed by: ROHIT BATRES DO 05/20/23 1056 Departure Impression Primary Impression: Mastitis, left, acute Disposition: 01 HOME, SELF-CARE Condition: Improved Departure-Patient Inst. Decision time for Depature: 11:26 Referrals: MIRNA STALLINGS DO (PCP/Family) Primary Care Physician Patient Instructions: Mastitis Add. Discharge Instructions: All discharge instructions reviewed with patient and/or family. Voiced understanding. Take medications as previously prescribed. You may use ibuprofen 600 mg every 8 hours as needed for fever or pain. You may use Tylenol/acetaminophen 1000 mg every 6-8 hours as needed for fever or pain. Continue to express milk. Follow- up with your obstetricia or primary care doctor n for recheck and further evaluation later this week. Return for worse pain, persistent fever, weakness, breathing problems, vomiting or other concerns as needed. SHABANA MATIAS MD May 20, 2023 10:33
[2023-05-20 10:35] LABS: PROTHROMBIN TIME PATIENT 13.3 SEC (12.2-14.7)
[2023-05-20 10:42] LABS: ALANINE AMINOTRANSFERASE 22 U/L (0-55); ALBUMIN 4.7 GM/DL (3.2-4.5); ALKALINE PHOSPHATASE 91 U/L (40-136); BILIRUBIN,TOTAL 1.3 MG/DL (0.1-1.0); BUN/CREATININE RATIO 12; CALCIUM 9.8 MG/DL (8.5-10.1); CARBON DIOXIDE 24 MMOL/L (21-32); CHLORIDE 103 MMOL/L (98-107); GFR ESTIMATED 86; GLUCOSE 103 MG/DL (70-105); POTASSIUM 3.9 MMOL/L (3.6-5.0); SODIUM 138 MMOL/L (135-145)
--- NOTE | 2023-05-20 10:54 | Diagnostic Imaging Report ---
EXAMINATION: Chest 1 view HISTORY: fever, tachycardia COMPARISON: None available. FINDINGS: Heart size and pulmonary vasculature are normal. The lungs are clear without consolidation, pleural effusion, or pneumothorax. The osseous structures are intact. IMPRESSION: 1. No acute radiographic abnormality in the chest. Dictated by: Dictated on workstation # [id number]
[2023-05-20 11:34] VITALS: BP 126/82
== END 2023-05-20 11:34 | disposition home or self-care (01) ==
LOC: EDUNIT# 09:59 → ER 10:02
DX: N61.0 Mastitis without abscess (principal); R00.0 Tachycardia, unspecified; Z88.2 Allergy status to sulfonamides
CPT/HCPCS: 36415; 71045; 80053; 83605; 85025; 85610; 85730; 86141; 87040